=== PATIENT | male | born 1980 | race Caucasian/White ===

== ENCOUNTER 2024-12-19 06:59 | Day surgery (SDC) | payer OTHER ==
[~2024-12-19] VITALS: Ht 175.3 cm; Wt 80.3 kg
[~2024-12-19 06:59] MED LIST: ALEV220T22 PO
[2024-12-19] MEDS ORDERED: propofoL 500 MG/50 ML VIAL As Ordered ONE (07:13)
[2024-12-19] MEDS ORDERED: LIDOCAINE 2% 100MG/5ML SDV (FOR ANES.) As Ordered ONE (07:13)
[2024-12-19] MEDS ORDERED: fentaNYL 100 MCG/2 ML INJECTION As Ordered ONE (07:14)
[2024-12-19 08:46] VITALS: TEMP 97.1
[2024-12-19 09:04] VITALS: BP 118/64; O2SAT 100
== END 2024-12-19 09:11 | disposition home or self-care (01) ==
LOC: M OPP 06:59
PROVIDERS: ATTEND Internal Medicine Gastroenterology
DX: D12.3 Benign neoplasm of transverse colon (principal); K62.89 Other specified diseases of anus and rectum; K64.8 Other hemorrhoids; R19.4 Change in bowel habit; K92.1 Melena; R10.84 Generalized abdominal pain; Z79.899 Other long term (current) drug therapy
CPT/HCPCS: 43235; 45385; 88305; J3010